=== PATIENT | female | born 1940 | race Caucasian/White ===

== ENCOUNTER 2016-10-25 16:02 | Inpatient (IN) | payer MEDICARE ==
--- NOTE | 2016-10-25 17:32 | ER Document Report ---
ED Medical Screen (RME) - General Stated Complaint: TOE PAIN Mode of Arrival: Wheelchair Information source: Patient Notes: Patient complains of diabetic foot ulcer to her foot. Patient saw her assistant office manager who advised her to come here today. Patient has been taking Levaquin for the past 5 days. hx: Diabetes, hypertension I have greeted and performed a rapid initial assessment of this patient. A comprehensive ED assessment and evaluation of the patient, analysis of test results and completion of the medical decision making process will be conducted by additional ED providers. Physical Exam - Skin Skin Color: Erythema - Right lower extremity Location of irregularity: Other - Ulcer to right great toe
[2016-10-25 18:51] LABS: ABSOLUTE EOSINOPHILS # (AUTO) 0.1 10^3/uL (0.0-0.6); ABSOLUTE LYMPHOCYTES (AUTO) 1.8 10^3/uL (0.5-4.7); ABSOLUTE MONOCYTES (AUTO) 0.9 10^3/uL (0.1-1.4); ABSOLUTE NEUT (AUTO) 8.1 10^3/uL (1.7-8.2); BASOPHILS % (AUTO) 0.4 % (0-2); HEMOGLOBIN 13.6 g/dL (12.0-15.5); HGB HCT DIFFERENCE 1.8; LYMPHOCYTES % (AUTO) 16.6 % (13-45); MEAN CORPUSCULAR HEMOGLOBIN 30.5 pg (27.0-33.4); MEAN CORPUSCULAR VOLUME 87 fl (80-97); RED BLOOD COUNT 4.47 10^6/uL (3.72-5.28); RED CELL DISTRIBUTION WIDTH 13.6 % (11.5-14.0)
[2016-10-25 18:58] LABS: ALANINE AMINOTRANSFERASE 25 U/L (9-52); ALBUMIN 3.3 g/dL (3.5-5.0); ALKALINE PHOSPHATASE 103 U/L (38-126); ANION GAP 12 (5-19); ASPARTATE AMINO TRANSFERASE 18 U/L (14-36); BILIRUBIN,TOTAL 0.6 mg/dL (0.2-1.3); BLOOD UREA NITROGEN 10 mg/dL (7-20); CARBON DIOXIDE 27 mmol/L (22-30); CHLORIDE 94 mmol/L (98-107); CREATININE RESULT 0.54 mg/dL (0.52-1.25); GLUCOSE 278 mg/dL (75-110); POTASSIUM 3.7 mmol/L (3.6-5.0); SODIUM 132.9 mmol/L (137-145); TOTAL PROTEIN 6.8 g/dL (6.3-8.2)
--- NOTE | 2016-10-25 19:07 | ER Document Report ---
ED Extremity Problem, Lower - General Chief Complaint: R big toe pain, R leg pain Stated Complaint: TOE PAIN Mode of Arrival: Wheelchair Notes: patient is a 76 year old female p/w right toe wound. patient is a type II diabetic with h/i or idabetic foot wounds. she states this current one has been there for at least one week and was evaluated by her PCP on tuesday of last week. she was started on levaquin and told to f/u with podiatry today. she was told to come to the ED today. she admits to chills but denies objective fevers. She states shes had pain and swelling that has gotten worse along the front of her left nicholson. PMH: DM , HTN, HLD, HI in 2006 PSH: hemorrhoids, pelvic floor SH: pack years unclear she states she used to smoke 3 packs a day but unsure for how long, social etoh and denies drug use PCP: Dr. Castillo TRAVEL OUTSIDE OF THE [place] IN LAST 30 DAYS: No - Related Data Allergies/Adverse Reactions: Sulfa (Sulfonamide Antibiotics) Allergy (Verified 10/25/16 17:34) Past Medical History - General Information source: Patient - Social History Smoking Status: Unknown if Ever Smoked Family History: Reviewed & Not Pertinent Patient has suicidal ideation: No Patient has homicidal ideation: No Renal/ Medical History: Denies: Hx Peritoneal Dialysis Review of Systems - Review of Systems Constitutional: See HPI EENT: No symptoms reported Cardiovascular: No symptoms reported Respiratory: No symptoms reported Gastrointestinal: No symptoms reported Genitourinary: No symptoms reported Female Genitourinary: No symptoms reported Musculoskeletal: See HPI Skin: See HPI Hematologic/Lymphatic: No symptoms reported Neurological/Psychological: No symptoms reported Physical Exam - Vital signs Vitals: Temp Pulse Resp BP Pulse Ox 98.0 F 81 16 119/57 L 97 10/25/16 17:26 10/25/16 17:26 10/25/16 17:26 10/25/16 17:26 10/25/16 17:26 Interpretation: Normal - General General appearance: Appears well, Alert In distress: None - Respiratory Respiratory status: No respiratory distress Chest status: Nontender Breath sounds: Normal Chest palpation: Normal - Cardiovascular Rhythm: Regular Heart sounds: Normal auscultation Murmur: No Pulses: Normal: Dorsalis pedis Normal capillary refill: Yes - Extremities Calf: Other - negative homans Ankle: Tender, Edema Foot: Tender, Edema, Other - Skin Skin Temperature: Hot Skin Moisture: Dry Skin Color: Erythema Skin Turgor: Edematous Skin irregularity: other - nontender, area of flaking skin and ulcer at the tip of the right big toe with invasion into deeper tissue Irregularity with: Swelling, Warmth Course - Re-evaluation Re-evalutation: 10/25/16 20:26 patient is a 76 year old diabetic female with evidence of cellulitis of the lower leg and potentially necrotic right big toe with tract into deep tissue. leg evaluated by general surgeon Dr. Kenny and d/w Dr. Beto Regalado for admission. Patient will be admitted for IV abx and surgical evaluation for debridement possible amputation. - Vital Signs Vital signs: Temp Pulse Resp BP Pulse Ox 98.0 F 81 16 119/57 L 97 10/25/16 17:26 10/25/16 17:26 10/25/16 17:26 10/25/16 17:26 10/25/16 17:26 - Laboratory Result Diagrams: 10/25/16 18:10 10/25/16 18:10 Laboratory results interpreted by me: 10/25/16 10/25/16 18:10 18:10 WBC 11.0 H Sodium 132.9 L Chloride 94 L Glucose 278 H Albumin 3.3 L - Diagnostic Test Radiology reviewed: Image reviewed, Reports reviewed - Consults Dr. Beto Regalado Reason for consultation: 10/25/16 20:29 hospital admission Consulted provider: will come to ER Dr. andrew kenny Reason for consultation: 10/25/16 20:30 surgical evaluation Consulted provider: will come to ER Discharge - Discharge Clinical Impression: Diabetic toe ulcer Cellulitis Qualifiers: Site of cellulitis: extremity Site of cellulitis of extremity: toe Laterality: right Qualified Code(s): L03.031 - Cellulitis of right toe Condition: Stable Disposition: ADMITTED INPATIENT Admitting Provider: Hospitalist - Dr. Beto Regalado Unit Admitted: Medical Floor
[2016-10-25] MEDS ORDERED: GLUCAGON,HUMAN RECOMB 1 MG INJ IM PRN (20:12)
[2016-10-25] MEDS ORDERED: DEXTROSE 40% GEL 15 GM TUBE PO PRN ×2 (20:12)
[2016-10-25] MEDS ORDERED: DEXTROSE 50%-WATER 25 GM/50 ML DISP.SYRIN IV PRN ×2 (20:12)
[2016-10-25] MEDS ORDERED: HYDRALAZINE HCL INJ/PF 20 MG/1 ML SDV IV PRN (20:14)
[2016-10-25] MEDS ORDERED: KETOROLAC TROMETHAMINE INJ/PF 30 MG/1 ML SDV IV PRN (20:14)
[2016-10-25] MEDS ORDERED: ACETAMINOPHEN 325 MG TABLET PO PRN (20:14)
[2016-10-25] MEDS ORDERED: VANCOMYCIN HCL 0 MG in DEXTROSE 5%-WATER 250 ML IV NR (20:15)
[2016-10-25] MEDS ORDERED: CLINDAMYCIN 600 MG/D5W RTU 50 ML IV ONE (20:26)
[2016-10-25] MEDS ORDERED: ONDANSETRON HCL INJ/PF 4 MG/2 ML SDV IV PRN (20:58)
[2016-10-25] MEDS ORDERED: NORMAL SALINE 1000 ML 1,000 ML IV ONE (21:01)
--- NOTE | 2016-10-25 21:21 | PDOC CONSULTATION ---
Consultation Consult Date: 10/25/16 Attending physician:: PHILLY GUEVARA Consult reason:: Diabetic right great toe ulcer History of Present Illness Admission Date/PCP: 10/25/16 21:02 PHILLY GODOY History of Present Illness: JAMI STACK is a 76 year old female who presents emergency department complaining of infection involving the right great toe. The patient has had right great toe infections intermittently for several years. 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 She's been managed by black puller most recently Dr. Alta Taylor. She was started by mouth antibiotics without clinical improvement. She is now seen in the emergency department complaining of worsening right great toe redness swelling and now redness involving her foot and lower leg. The patient is admitted today hospital service with surgery consulting. The patient has [facility] [place] in years past. She is status post left second toe amputation many years ago due to complications from diabetes. Social History Smoking Status: Unknown if Ever Smoked Family History Family History: Reviewed & Not Pertinent Parental Family History Reviewed: Yes Children Family History Reviewed: Yes Sibling(s) Family History Reviewed.: Yes Medication/Allergy Home Medications: Atenolol/Chlorthalidone [Atenolol-Chlorthalidone 100-25] 1 tab PO DAILY Lisinopril [Prinivil 10 mg Tablet] 10 mg PO DAILY 10/25/16 Lorazepam 1 mg PO TIDP PRN 10/25/16 Lovastatin [Altoprev] 40 mg PO QPM 10/25/16 Magnesium Oxide 400 mg PO DAILY 10/25/16 Potassium Chloride [K-Tab ER] 8 meq PO DAILY 10/25/16 Tramadol HCl [Ultram 50 mg Tablet] 50 mg PO TIDP PRN 10/25/16 Venlafaxine HCl ER [Effexor Xr 75 mg Cap.sr] 150 mg PO DAILY 10/25/16 Allergies/Adverse Reactions: Sulfa (Sulfonamide Antibiotics) Allergy (Verified 10/25/16 17:34) Physical Exam Vital Signs: Temp Pulse Resp BP Pulse Ox 98.0 F 81 16 119/57 L 97 10/25/16 17:26 10/25/16 17:26 10/25/16 17:26 10/25/16 17:26 10/25/16 17:26 General appearance: PRESENT: no acute distress Head exam: PRESENT: normocephalic Eye exam: PRESENT: EOMI Mouth exam: PRESENT: moist Neck exam: PRESENT: full ROM Respiratory exam: PRESENT: clear to auscultation elizabeth Pulses: PRESENT: normal carotid pulses, normal radial pulses, +2 pedal pulses bilateral, other - Ultrasound bilaterally. I cannot palpate posterior tibial pulses. Patient's feet are edematous right greater than left. There is erythema to the right forefoot. There is gross chronic deformity involving the metatarsal hyperflexion, with dorsiflexion of the phalanges Extremities exam: PRESENT: other - Right great toe swollen, near-complete loss of nail, chronic. There is an opening to the skin at the tip of the right great toe seropurulent discharge. No obvious bone exposed. There is mild streaking to the forefoot and lower leg +3 edema to the right leg. On the left great toe first mal perforans ulcer, dry. Results Impressions: Foot X-Ray 10/25/16 17:31 IMPRESSION: No acute bone or joint defect. No foreign body. Assessment & Plan - Diagnosis (1) Diabetic toe ulcer Is this a current diagnosis for this admission?: YesPlan: 1. Acute superimposed on chronic right great toe infection, serious, with associated soft tissue infection of the forefoot and lower leg in this uncontrolled diabetic. The right great toe was threatened and is putting the right foot and lower leg in jeopardy. I explained this in very clear terms to the patient. She needs to be admitted to the hospital started on intravenous antibiotics and kept nothing by mouth after midnight. 2. The radiographic x-ray showed no obvious osteomyelitis. Nonetheless given this patient's age, history of problems with the right great toe, and the current stations of soft tissue infection involving the lower leg and foot, I believe this patient will be headed for a right great toe amputation sooner rather than later. 3. We'll plan to keep patient nothing by mouth after midnight and reexamine in the morning. She may undergo right great toe amputation in a staged fashion this hospitalization. - Time Time Spent: 30 to 50 Minutes Critical Time spent with patient: 15-24 minutes Medications reviewed and adjusted accordingly: Yes Anticipated discharge: Home - Inpatient Certification Based on my medical assessment, after consideration of the patient's comorbidities, presenting symptoms, or acuity I expect that the services needed warrant INPATIENT care.: Yes I certify that my determination is in accordance with my understanding of Medicare's requirements for reasonable and necessary INPATIENT services [42 CFR 412.3e].: Yes Medical Necessity: Need For IV Fluids, Need for IV Antibiotics, Need for Surgery
[2016-10-25] MEDS ORDERED: HEPARIN SOD (PORCINE) 5,000 UNIT/ML 1 ML SYRINGE SUBCUT SCH (22:00)
[2016-10-25] MEDS ORDERED: VANCOMYCIN HCL INJ 1000 MG VIAL ONE (22:47)
[2016-10-25] MEDS: VANCOMYCIN HCL 1,000 MG in DEXTROSE 5%-WATER 250 ML IV SCH (22:54)
[2016-10-25] MEDS: HEPARIN SOD (PORCINE) 5,000 UNIT/ML 1 ML SYRINGE SUBCUT SCH (22:54)
[2016-10-26] MEDS ORDERED: DEXTROSE 40% GEL 15 GM TUBE PO PRN (00:08)
[2016-10-26] MEDS: HEPARIN SOD (PORCINE) 5,000 UNIT/ML 1 ML SYRINGE SUBCUT SCH ×3 (05:32→21:19)
[2016-10-26 07:36] LABS: ABSOLUTE EOSINOPHILS # (AUTO) 0.1 10^3/uL (0.0-0.6); ABSOLUTE LYMPHOCYTES (AUTO) 1.8 10^3/uL (0.5-4.7); ABSOLUTE MONOCYTES (AUTO) 0.7 10^3/uL (0.1-1.4); ABSOLUTE NEUT (AUTO) 5.7 10^3/uL (1.7-8.2); BASOPHILS % (AUTO) 0.6 % (0-2); EOSINOPHILS % (AUTO) 1.1 % (0-6); HEMATOCRIT 35.1 % (36.0-47.0); HEMOGLOBIN 12.4 g/dL (12.0-15.5); HGB HCT DIFFERENCE 2.1; LYMPHOCYTES % (AUTO) 21.7 % (13-45); MEAN CORPUSCULAR HEMOGLOBIN 30.7 pg (27.0-33.4); MEAN CORPUSCULAR HGB CONC 35.3 g/dL (32.0-36.0); MEAN CORPUSCULAR VOLUME 87 fl (80-97); MONOCYTES % (AUTO) 8.3 % (3-13); RED BLOOD COUNT 4.03 10^6/uL (3.72-5.28); RED CELL DISTRIBUTION WIDTH 13.6 % (11.5-14.0); SEGMENTED NEUTROPHILS % (AUTO) 68.3 % (42-78); WHITE BLOOD COUNT 8.4 10^3/uL (4.0-10.5)
[2016-10-26 08:00] LABS: ANION GAP 13 (5-19); BLOOD UREA NITROGEN 8 mg/dL (7-20); CALCIUM 9.8 mg/dL (8.4-10.2); CARBON DIOXIDE 26 mmol/L (22-30); CHLORIDE 96 mmol/L (98-107); CREATININE RESULT 0.46 mg/dL (0.52-1.25); GLUCOSE 255 mg/dL (75-110); POTASSIUM 3.5 mmol/L (3.6-5.0); SODIUM 134.7 mmol/L (137-145)
[2016-10-26] MEDS ORDERED: METFORMIN HCL 500 MG TABLET PO SCH (08:00)
--- NOTE | 2016-10-26 08:35 | PDOC H&P ---
History of Present Illness Admission Date/PCP: 10/25/16 20:58 PHILLY QUOCJESSICA Patient complains of: Right great toe pain History of Present Illness: JAMI STACK is a 76 year old female who presents emergency department complaining of infection involving the right great toe complicated by a history of uncontrolled diabetes and Tobacco Dependence. The patient has had right great toe infections intermittently for several years. 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 She's been managed by cell repairer most recently Dr. Alta Taylor. She was started on by mouth Levaquin without clinical improvement. She is now referred to the emergency room by podiatry seen in the emergency department complaining of worsening right great toe redness swelling and now redness involving her foot and lower leg. The patient is admitted today hospital service with surgery consulting. The patient has been [facility] at [facility] in [place] in years past. She is status post left second toe amputation many years ago due to complications from diabetes. Past Medical History Endocrine Medical History: Reports: Diabetes Mellitus Type 1 Psychiatric Medical History: Reports: Depression Social History Smoking Status: Current Some Day Smoker Cigarettes Packs Per Day: 0.5 Number of Years Smokin Frequency of Alcohol Use: Social Hx Recreational Drug Use: No Drugs: None Hx Prescription Drug Abuse: No - Advance Directive Resuscitation Status: Full Code Family History Family History: DM, Hypertension Parental Family History Reviewed: Yes Children Family History Reviewed: Yes Sibling(s) Family History Reviewed.: Yes Medication/Allergy Home Medications: Atenolol/Chlorthalidone [Atenolol-Chlorthalidone 100-25] 1 tab PO DAILY Lisinopril [Prinivil 10 mg Tablet] 10 mg PO DAILY 10/25/16 Lorazepam 1 mg PO TIDP PRN 10/25/16 Lovastatin [Altoprev] 40 mg PO QPM 10/25/16 Magnesium Oxide 400 mg PO DAILY 10/25/16 Potassium Chloride [K-Tab ER] 8 meq PO DAILY 10/25/16 Tramadol HCl [Ultram 50 mg Tablet] 50 mg PO TIDP PRN 10/25/16 Venlafaxine HCl ER [Effexor Xr 75 mg Cap.sr] 150 mg PO DAILY 10/25/16 Allergies/Adverse Reactions: Sulfa (Sulfonamide Antibiotics) Allergy (Verified 10/25/16 17:34) Review of Systems Constitutional: ABSENT: chills, fever(s), headache(s), weight gain, weight loss Eyes: ABSENT: visual disturbances Ears: ABSENT: hearing changes Cardiovascular: ABSENT: chest pain, dyspnea on exertion, edema, orthropnea, palpitations Respiratory: ABSENT: cough, hemoptysis Gastrointestinal: ABSENT: abdominal pain, constipation, diarrhea, hematemesis, hematochezia, nausea, vomiting Genitourinary: ABSENT: dysuria, hematuria Musculoskeletal: ABSENT: joint swelling Integumentary: ABSENT: rash, wounds Neurological: ABSENT: abnormal gait, abnormal speech, confusion, dizziness, focal weakness, syncope Psychiatric: ABSENT: anxiety, depression, homidical ideation, suicidal ideation Endocrine: ABSENT: cold intolerance, heat intolerance, polydipsia, polyuria Hematologic/Lymphatic: ABSENT: easy bleeding, easy bruising Physical Exam Vital Signs: Temp Pulse Resp BP Pulse Ox 98.3 F 77 16 135/57 H 97 10/26/16 07:28 10/26/16 07:28 10/26/16 07:28 10/26/16 07:28 10/26/16 07:28 Intake & Output 10/24/16 10/25/16 10/26/16 11:59 11:59 11:59 Output Total 400 Balance -400 Weight 77.2 kg General appearance: PRESENT: cooperative, mild distress, well-developed, well- nourished Head exam: PRESENT: atraumatic, normocephalic Eye exam: PRESENT: conjunctiva pink, EOMI, PERRLA. ABSENT: scleral icterus Ear exam: PRESENT: normal external ear exam Mouth exam: PRESENT: moist, tongue midline Neck exam: ABSENT: carotid bruit, JVD, lymphadenopathy, thyromegaly Respiratory exam: PRESENT: clear to auscultation elizabeth. ABSENT: rales, rhonchi, wheezes Cardiovascular exam: PRESENT: RRR. ABSENT: diastolic murmur, rubs, systolic murmur Pulses: PRESENT: normal dorsalis pedis pul Vascular exam: PRESENT: normal capillary refill GI/Abdominal exam: PRESENT: normal bowel sounds, soft. ABSENT: distended, guarding, mass, organolmegaly, rebound, tenderness Rectal exam: PRESENT: deferred Extremities exam: PRESENT: full ROM, tenderness - Right foot tenderness and erythema stemming from swelling and large ulcer to the distal great toe with purulent Malodorous exudate. ABSENT: calf tenderness, clubbing, pedal edema Neurological exam: PRESENT: alert, awake, oriented to person, oriented to place , oriented to time, oriented to situation, CN II-XII grossly intact. ABSENT: motor sensory deficit Psychiatric exam: PRESENT: appropriate affect, normal mood. ABSENT: homicidal ideation, suicidal ideation Skin exam: PRESENT: dry, intact, warm. ABSENT: cyanosis, rash Results Laboratory Results: 10/26/16 06:31 10/26/16 06:31 10/26/16 10/26/16 06:31 06:31 WBC 8.4 RBC 4.03 Hgb 12.4 Hct 35.1 L MCV 87 MCH 30.7 MCHC 35.3 RDW 13.6 Plt Count 308 Seg Neutrophils % 68.3 Lymphocytes % 21.7 Monocytes % 8.3 Eosinophils % 1.1 Basophils % 0.6 Absolute Neutrophils 5.7 Absolute Lymphocytes 1.8 Absolute Monocytes 0.7 Absolute Eosinophils 0.1 Absolute Basophils 0.0 Sodium 134.7 L Potassium 3.5 L Chloride 96 L Carbon Dioxide 26 Anion Gap 13 BUN 8 Creatinine 0.46 L Est GFR ( Amer) > 60 Est GFR (Non-Af Amer) > 60 Glucose 255 H Calcium 9.8 Impressions: Foot X-Ray 10/25/16 17:31 IMPRESSION: No acute bone or joint defect. No foreign body. Assessment & Plan - Diagnosis (1) Cellulitis of foot without toes, right Is this a current diagnosis for this admission?: YesPlan: Empiric antibiotics and surgical consult please see #2 (2) Diabetic toe ulcer Is this a current diagnosis for this admission?: YesPlan: Empiric antibiotics, symptomatic management correction of underlying and uncontrolled diabetes and surgical consultation with follow-up of CBC blood and wound culture (3) Diabetes 1.5, managed as type 1 Is this a current diagnosis for this admission?: YesPlan: Evaluation of A1c Humalog sliding scale insulin and long-acting insulin regiment with education (4) Tobacco dependence Is this a current diagnosis for this admission?: YesPlan: Tobacco Dependence patient received tobacco cessation counseling and offered nicotine replacement options - Time Time Spent: 50 to 70 Minutes
[2016-10-26] MEDS ORDERED: CHLORTHALIDONE PO SCH (10:00)
[2016-10-26] MEDS ORDERED: ATENOLOL PO SCH (10:00)
[2016-10-26] MEDS: VANCOMYCIN HCL 1,000 MG in DEXTROSE 5%-WATER 250 ML IV SCH ×2 (10:06→21:24)
[2016-10-26] MEDS ORDERED: LIDOCAINE 1% INJ-PF (10 MG/ML) 30 ML SDV ONE (10:14)
[2016-10-26] MEDS ORDERED: NORMAL SALINE 1000 ML 1,000 ML IV PRN (10:22)
[2016-10-26] MEDS ORDERED: FENTANYL CITRATE INJ/PF 100 MCG/2 ML AMPUL ONE (10:56)
[2016-10-26] MEDS ORDERED: DEXMEDETOMIDINE INJ 80 MCG/20 ML VIAL IV ONE (10:57)
[2016-10-26] MEDS ORDERED: PROPOFOL INJ 200 MG/20 ML VIAL IV ONE (10:57)
[2016-10-26] MEDS ORDERED: MIDAZOLAM 2 MG/2 ML INJ ONE (10:57)
--- NOTE | 2016-10-26 12:17 | Operative Report ---
Operative Report DATE OF SURGERY: 10/26/16 PREOPERATIVE DIAGNOSIS: Septic right great toe in diabetic POSTOPERATIVE DIAGNOSIS: Same OPERATION: Plan right great toe amputation including metatarsal head with planned delayed primary closure SURGEON: ORA LIVINGSTON DATASTAGE ARCHITECT: DAFNE MCDANIEL ANESTHESIA: LMAC TISSUE REMOVED OR ALTERED: Right great toe and first metatarsal head COMPLICATIONS: On ESTIMATED BLOOD LOSS: 25 mL INTRAOPERATIVE FINDINGS: See below PROCEDURE: Patient was seen in the preoperative holding area the right foot was marked. Then taken to the operating room where LMAC anesthesia was induced. The right foot was prepped and draped sterile fashion. Instrumentation set up for complete right great toe amputation. Surgical plan surgical time out conducted. The patella the web space was anesthetized with quarter percent Marcaine. There was amputated at the web space with 10 blade. The first phalanx was amputated with the remnant was removed with rongeur and periosteal elevators. The head of the first metatarsal bone was also removed with the Liu until smooth. All vessels were patent and cauterized for control. The skin flaps were in excellent shape. As of the active infection in the toe, I felt that primary closure would be risky so we decided to do a late primary closure. The graft after irrigating the wound copiously aced 6 interrupted 3-0 vertical mattress sutures in the anterior posterior skin flaps. We packed the wound cavity with iodoform packing, covered the open wound with Xeroform, balled up the loose untied sutures, applied 4 x 4's and Curlex and Jeff wrap to the forefoot. Jeff wrap was applied. Postop procedure well. No complications. She is taken recovery in stable condition.The physician medical assistant secretary, Ms. Mcdaniel, provided assistance during this case by: Assisting with retracting tissue, instillation of local anesthesia and closure of skin incisions.
[2016-10-26] MEDS ORDERED: ONDANSETRON HCL INJ/PF 4 MG/2 ML SDV IV PRN (12:18)
[2016-10-26] MEDS ORDERED: OXYCODONE-ACETAMINOPHEN 5-325 MG TABLET PO PRN ×2 (12:18→12:38)
--- NOTE | 2016-10-26 13:27 | EKG REPORT ---
SEVERITY:- ABNORMAL ECG - SINUS RHYTHM LEFT BUNDLE BRANCH BLOCK : Confirmed by: Davi Fritz MD 26-Oct-2016 13:26:56
[2016-10-26] MEDS: INSULIN LISPRO 100 UNIT/ML 3 ML VIAL SUBCUT PRN ×3 (13:39→22:15)
[2016-10-26] MEDS: LORAZEPAM 1 MG TABLET PO PRN (13:57)
[2016-10-26] MEDS: DOCUSATE SODIUM 100 MG CAPSULE PO SCH ×2 (13:57→18:02)
[2016-10-26] MEDS: MAGNESIUM OXIDE 400 MG TABLET PO SCH (13:58)
[2016-10-26] MEDS: LISINOPRIL 10 MG TABLET PO SCH (13:58)
[2016-10-26] MEDS: VENLAFAXINE HCL 75 MG CAP.SR.24H PO SCH (14:07)
[2016-10-26] MEDS ORDERED: LIDOCAINE 2% INJ-PF (20 MG/ML) 10 ML AMPUL ONE (15:14)
[2016-10-26] MEDS ORDERED: METOCLOPRAMIDE HCL INJ/PF 10 MG/2 ML SDV ONE (15:14)
[2016-10-26] MEDS ORDERED: ONDANSETRON HCL INJ/PF 4 MG/2 ML SDV ONE (15:14)
[2016-10-26] MEDS ORDERED: GLYCOPYRROLATE INJ 0.4 MG/2 ML VIAL ONE (15:14)
[2016-10-26] MEDS ORDERED: NICOTINE 21 MG/24 HR PATCH.TD24 TD PRN (15:47)
--- NOTE | 2016-10-26 15:49 | PDOC PROGRESS REPORT ---
Subjective Progress Note for:: 10/26/16 Subjective:: The patient was seen earlier today on rounds. The patient has returned from the OR and had amputation of the affected right great toe. The patient denies any nausea, vomiting, diarrhea, shortness of breath, dizziness, chest pain, heart palpitations, fevers, or chills. The patient has remained afebrile. Blood pressures have been in a good range. When prompted the patient voices no other concerns at this time. Review of systems: The rest of the review of systems is negative. Physical Exam Vital Signs: Temp Pulse Resp BP Pulse Ox 97.8 F 78 16 133/67 H 98 10/26/16 13:57 10/26/16 13:57 10/26/16 13:57 10/26/16 13:57 10/26/16 13:57 Intake & Output 10/24/16 10/25/16 10/26/16 23:59 23:59 23:59 Intake Total 700 Output Total 950 Balance -250 Weight 77.2 kg General appearance: PRESENT: no acute distress, cooperative, well-developed, well-nourished Head exam: PRESENT: atraumatic, normocephalic Eye exam: PRESENT: conjunctiva pink, EOMI, PERRLA. ABSENT: scleral icterus Ear exam: PRESENT: normal external ear exam Mouth exam: PRESENT: moist, tongue midline Neck exam: ABSENT: carotid bruit, JVD, lymphadenopathy, thyromegaly Respiratory exam: PRESENT: clear to auscultation elizabeth. ABSENT: rales, rhonchi, wheezes Cardiovascular exam: PRESENT: RRR. ABSENT: diastolic murmur, rubs, systolic murmur Pulses: PRESENT: normal dorsalis pedis pul Vascular exam: PRESENT: normal capillary refill GI/Abdominal exam: PRESENT: normal bowel sounds, soft. ABSENT: distended, guarding, mass, organolmegaly, rebound, tenderness Rectal exam: PRESENT: deferred Extremities exam: PRESENT: full ROM, other - Right lower extremity is wrapped in surgical dressing. ABSENT: calf tenderness, clubbing, pedal edema Neurological exam: PRESENT: alert, awake, oriented to person, oriented to place , oriented to time, oriented to situation, CN II-XII grossly intact. ABSENT: motor sensory deficit Psychiatric exam: PRESENT: appropriate affect, normal mood. ABSENT: homicidal ideation, suicidal ideation Skin exam: PRESENT: dry, intact, warm. ABSENT: cyanosis, rash Results Laboratory Results: 10/26/16 06:31 10/26/16 06:31 10/26/16 10/26/16 06:31 06:31 WBC 8.4 RBC 4.03 Hgb 12.4 Hct 35.1 L MCV 87 MCH 30.7 MCHC 35.3 RDW 13.6 Plt Count 308 Seg Neutrophils % 68.3 Lymphocytes % 21.7 Monocytes % 8.3 Eosinophils % 1.1 Basophils % 0.6 Absolute Neutrophils 5.7 Absolute Lymphocytes 1.8 Absolute Monocytes 0.7 Absolute Eosinophils 0.1 Absolute Basophils 0.0 Sodium 134.7 L Potassium 3.5 L Chloride 96 L Carbon Dioxide 26 Anion Gap 13 BUN 8 Creatinine 0.46 L Est GFR ( Amer) > 60 Est GFR (Non-Af Amer) > 60 Glucose 255 H Calcium 9.8 Impressions: Foot X-Ray 10/25/16 17:31 IMPRESSION: No acute bone or joint defect. No foreign body. Assessment & Plan - Diagnosis (1) Cellulitis Qualifiers: Site of cellulitis: extremity Site of cellulitis of extremity: toe Laterality: right Qualified Code(s): L03.031 - Cellulitis of right toe Is this a current diagnosis for this admission?: YesPlan: Will continue IV antibiotic coverage. Will await pathologies. Blood cultures are pending. (2) Diabetes 1.5, managed as type 1 Is this a current diagnosis for this admission?: YesPlan: Continues on scale coverage and resume metformin now the patient is taking by mouth. Will increase dosage given elevated A1c (3) Status post amputation Is this a current diagnosis for this admission?: YesPlan: Management as per surgery (4) Tobacco dependence Is this a current diagnosis for this admission?: YesPlan: Spent 3 minutes discussing smoking cessation education. The patient declines any pharmacological intervention at this time however will add a PRN nicotine patch. - Time Time Spent with patient: 35 or more minutes Medications reviewed and adjusted accordingly: Yes Anticipated discharge: Home Within: within 48 hours
[2016-10-26] MEDS ORDERED: ATENOLOL 50 MG TABLET PO ONE (16:30)
[2016-10-26] MEDS: METFORMIN HCL 500 MG TABLET PO SCH (17:07)
[2016-10-26] MEDS ORDERED: (PENDING PHARMACY ID) (Lovastatin [Altoprev] 40 MG) PO SCH (18:00)
[2016-10-26] MEDS: ERTAPENEM SODIUM 1 GM in NORMAL SALINE 50 ML IV SCH (18:02)
[2016-10-26] MEDS: ATORVASTATIN CALCIUM 10 MG TABLET PO SCH (21:24)
[2016-10-27] MEDS: HEPARIN SOD (PORCINE) 5,000 UNIT/ML 1 ML SYRINGE SUBCUT SCH ×3 (06:59→22:08)
[2016-10-27] MEDS: INSULIN LISPRO 100 UNIT/ML 3 ML VIAL SUBCUT PRN ×4 (06:59→22:08)
--- NOTE | 2016-10-27 08:25 | PDOC PROGRESS REPORT ---
Subjective Progress Note for:: 10/27/16 Subjective:: Patient seen on morning rounds. She is resting in bed eating breakfast. She denies any chest pain, shortness of breath, or dyspnea. She denies any nausea, vomiting or diarrhea. She denies any pain in her foot at the present time. Rest of review of systems are all negative. Physical Exam Vital Signs: Temp Pulse Resp BP Pulse Ox 97.5 F 72 16 107/53 L 96 10/27/16 03:36 10/27/16 03:36 10/27/16 03:36 10/27/16 03:36 10/27/16 03:36 Intake & Output 10/26/16 10/27/16 10/28/16 06:59 06:59 06:59 Intake Total 2810 Output Total 400 1853.5 Balance -400 956.5 Weight 77.2 kg 77.2 kg General appearance: PRESENT: no acute distress, well-developed, well-nourished Head exam: PRESENT: atraumatic, normocephalic Eye exam: PRESENT: conjunctiva pink, EOMI, PERRLA. ABSENT: scleral icterus Ear exam: PRESENT: normal external ear exam Mouth exam: PRESENT: moist, tongue midline Neck exam: ABSENT: carotid bruit, JVD, lymphadenopathy, thyromegaly Respiratory exam: PRESENT: clear to auscultation elizabeth. ABSENT: rales, rhonchi, wheezes Cardiovascular exam: PRESENT: RRR. ABSENT: diastolic murmur, rubs, systolic murmur Pulses: PRESENT: normal dorsalis pedis pul Vascular exam: PRESENT: normal capillary refill GI/Abdominal exam: PRESENT: normal bowel sounds, soft. ABSENT: distended, guarding, mass, organolmegaly, rebound, tenderness Extremities exam: PRESENT: full ROM, other - right foot wrapped in pam wrap and surgical dressing.. ABSENT: calf tenderness, clubbing, pedal edema Neurological exam: PRESENT: alert, awake, oriented to person, oriented to place , oriented to time, oriented to situation, CN II-XII grossly intact. ABSENT: motor sensory deficit Psychiatric exam: PRESENT: appropriate affect, normal mood. ABSENT: homicidal ideation, suicidal ideation Skin exam: PRESENT: dry, intact, warm, other. ABSENT: cyanosis, rash Results Laboratory Results: 10/26/16 06:31 10/26/16 06:31 Impressions: Foot X-Ray 10/25/16 17:31 IMPRESSION: No acute bone or joint defect. No foreign body. Assessment & Plan - Diagnosis (1) Status post amputation Is this a current diagnosis for this admission?: YesPlan: Surgical dressing to right foot dry and intact. Patient reports minimal pain. (2) Cellulitis Qualifiers: Site of cellulitis: extremity Site of cellulitis of extremity: toe Laterality: right Qualified Code(s): L03.031 - Cellulitis of right toe Is this a current diagnosis for this admission?: YesPlan: Continue IV antiobiotics, cultures negative (3) Diabetes 1.5, managed as type 1 Is this a current diagnosis for this admission?: YesPlan: Continue current meds and sliding scale coverage (4) Tobacco dependence Is this a current diagnosis for this admission?: YesPlan: Patient counseled - Time Time Spent with patient: 25-34 minutes Critical Time spent with patient: 15-24 minutes Anticipated discharge: Home
[2016-10-27] MEDS: METFORMIN HCL 500 MG TABLET PO SCH ×2 (09:01→17:55)
[2016-10-27] MEDS: DOCUSATE SODIUM 100 MG CAPSULE PO SCH ×2 (10:47→18:00)
[2016-10-27] MEDS: LORAZEPAM 1 MG TABLET PO PRN ×2 (10:47→22:09)
[2016-10-27] MEDS: MAGNESIUM OXIDE 400 MG TABLET PO SCH (10:47)
[2016-10-27] MEDS: ATENOLOL 50 MG TABLET PO SCH (10:48)
[2016-10-27] MEDS: LISINOPRIL 10 MG TABLET PO SCH (10:50)
[2016-10-27] MEDS: HYDROCHLOROTHIAZIDE 12.5 MG CAPSULE PO SCH (10:50)
[2016-10-27] MEDS: OXYCODONE-ACETAMINOPHEN 5-325 MG TABLET PO PRN ×2 (10:53→23:09)
[2016-10-27] MEDS: VANCOMYCIN HCL 1,000 MG in DEXTROSE 5%-WATER 250 ML IV SCH (10:58)
[2016-10-27 11:33] LABS: CREATININE RESULT 0.54 mg/dL (0.52-1.25)
--- NOTE | 2016-10-27 12:39 | PDOC PROGRESS REPORT ---
Subjective Progress Note for:: 10/27/16 Subjective:: Overall doing well with slight pain that started today noted around incisions site. Redness on leg has decreased. Wondering when she can be discharged. Results for culture discussed- no growth on cultures. Physical Exam Vital Signs: Temp Pulse Resp BP Pulse Ox 98.0 F 81 18 120/54 L 96 10/27/16 08:26 10/27/16 08:26 10/27/16 08:26 10/27/16 08:26 10/27/16 08:26 Intake & Output 10/26/16 10/27/16 10/28/16 06:59 06:59 06:59 Intake Total 3410 Output Total 400 2853.5 Balance -400 556.5 Weight 77.2 kg 77.2 kg General appearance: PRESENT: no acute distress, cooperative Musculoskeletal exam: PRESENT: other - Right great toe amputation with non- saturated dressings intact. Slight tenderness noted medial lower leg. Anterior/ medial erythema superior to dressing has decreased. No streaking. Minimal erythema around ankle. Results Laboratory Results: 10/26/16 06:31 10/27/16 09:57 10/27/16 09:57 Creatinine 0.54 Est GFR ( Amer) > 60 Est GFR (Non-Af Amer) > 60 Impressions: Foot X-Ray 10/25/16 17:31 IMPRESSION: No acute bone or joint defect. No foreign body. Assessment & Plan - Diagnosis (1) Status post amputation Is this a current diagnosis for this admission?: YesPlan: Continue IV medications. Will close amputation site tomorrow and apply new dressings. - Time Time Spent with patient: Less than 15 minutes Anticipated discharge: Home
[2016-10-27] MEDS: VENLAFAXINE HCL 75 MG CAP.SR.24H PO SCH (15:37)
[2016-10-27] MEDS: ERTAPENEM SODIUM 1 GM in NORMAL SALINE 50 ML IV SCH (18:00)
[2016-10-27] MEDS: ATORVASTATIN CALCIUM 10 MG TABLET PO SCH (22:21)
[2016-10-28] MEDS: HEPARIN SOD (PORCINE) 5,000 UNIT/ML 1 ML SYRINGE SUBCUT SCH ×3 (05:38→22:22)
[2016-10-28] MEDS: INSULIN LISPRO 100 UNIT/ML 3 ML VIAL SUBCUT PRN ×4 (06:51→22:22)
[2016-10-28 07:47] LABS: ABSOLUTE EOSINOPHILS # (AUTO) 0.1 10^3/uL (0.0-0.6); ABSOLUTE LYMPHOCYTES (AUTO) 2.2 10^3/uL (0.5-4.7); ABSOLUTE MONOCYTES (AUTO) 0.7 10^3/uL (0.1-1.4); ABSOLUTE NEUT (AUTO) 5.1 10^3/uL (1.7-8.2); BASOPHILS % (AUTO) 0.5 % (0-2); EOSINOPHILS % (AUTO) 1.3 % (0-6); HEMATOCRIT 34.5 % (36.0-47.0); HEMOGLOBIN 12.1 g/dL (12.0-15.5); HGB HCT DIFFERENCE 1.8; LYMPHOCYTES % (AUTO) 26.8 % (13-45); MEAN CORPUSCULAR HEMOGLOBIN 30.5 pg (27.0-33.4); MEAN CORPUSCULAR VOLUME 87 fl (80-97); MONOCYTES % (AUTO) 8.1 % (3-13); RED BLOOD COUNT 3.96 10^6/uL (3.72-5.28); RED CELL DISTRIBUTION WIDTH 13.3 % (11.5-14.0); SEGMENTED NEUTROPHILS % (AUTO) 63.3 % (42-78); WHITE BLOOD COUNT 8.1 10^3/uL (4.0-10.5)
[2016-10-28] MEDS: HYDROCHLOROTHIAZIDE 12.5 MG CAPSULE PO SCH (09:40)
[2016-10-28] MEDS: LISINOPRIL 10 MG TABLET PO SCH (09:40)
[2016-10-28] MEDS: MAGNESIUM OXIDE 400 MG TABLET PO SCH (09:41)
[2016-10-28] MEDS: ATENOLOL 50 MG TABLET PO SCH (09:41)
[2016-10-28] MEDS: DOCUSATE SODIUM 100 MG CAPSULE PO SCH ×2 (09:41→17:18)
[2016-10-28] MEDS: METFORMIN HCL 500 MG TABLET PO SCH ×3 (09:42→17:18)
[2016-10-28] MEDS: VENLAFAXINE HCL 75 MG CAP.SR.24H PO SCH (09:57)
[2016-10-28] MEDS ORDERED: ONDANSETRON 4 MG TAB.RAPDIS PO PRN (09:57)
--- NOTE | 2016-10-28 10:23 | PDOC PROGRESS REPORT ---
Subjective Progress Note for:: 10/28/16 Subjective:: The patient was seen earlier today on rounds. The patient is to return to the OR today to have a mutation closed. The patient does complain of right upper extremity pain which she has had for the last month. The patient denies any nausea, vomiting, diarrhea, shortness of breath, dizziness, chest pain, heart palpitations, fevers, or chills. The patient has remained afebrile. Blood pressures have been in a good range. When prompted the patient voices no other concerns at this time. Sugars still remain elevated. Review of systems: The rest of the review of systems is negative. Physical Exam Vital Signs: Temp Pulse Resp BP Pulse Ox 97.8 F 74 18 119/57 L 94 10/28/16 08:03 10/28/16 08:03 10/28/16 08:03 10/28/16 08:03 10/28/16 08:03 Intake & Output 10/26/16 10/27/16 10/28/16 23:59 23:59 23:59 Intake Total 2810 1830 240 Output Total 2253.5 2200 1000 Balance 556.5 -370 -760 Weight 77.2 kg 77.2 kg 78.3 kg General appearance: PRESENT: no acute distress, cooperative, well-developed, well-nourished Head exam: PRESENT: atraumatic, normocephalic Eye exam: PRESENT: conjunctiva pink, EOMI, PERRLA. ABSENT: scleral icterus Ear exam: PRESENT: normal external ear exam Mouth exam: PRESENT: moist, tongue midline Neck exam: ABSENT: carotid bruit, JVD, lymphadenopathy, thyromegaly Respiratory exam: PRESENT: clear to auscultation elizabeth. ABSENT: rales, rhonchi, wheezes Cardiovascular exam: PRESENT: RRR. ABSENT: diastolic murmur, rubs, systolic murmur Pulses: PRESENT: normal dorsalis pedis pul Vascular exam: PRESENT: normal capillary refill GI/Abdominal exam: PRESENT: normal bowel sounds, soft. ABSENT: distended, guarding, mass, organolmegaly, rebound, tenderness Rectal exam: PRESENT: deferred Extremities exam: PRESENT: full ROM, other - Right lower extremity is wrapped in surgical dressing. ABSENT: calf tenderness, clubbing, pedal edema Neurological exam: PRESENT: alert, awake, oriented to person, oriented to place , oriented to time, oriented to situation, CN II-XII grossly intact. ABSENT: motor sensory deficit Psychiatric exam: PRESENT: appropriate affect, normal mood. ABSENT: homicidal ideation, suicidal ideation Skin exam: PRESENT: dry, intact, warm. ABSENT: cyanosis, rash Results Laboratory Results: 10/28/16 06:50 10/27/16 09:57 10/27/16 10/28/16 09:57 06:50 WBC 8.1 RBC 3.96 Hgb 12.1 Hct 34.5 L MCV 87 MCH 30.5 MCHC 35.0 RDW 13.3 Plt Count 311 Seg Neutrophils % 63.3 Lymphocytes % 26.8 Monocytes % 8.1 Eosinophils % 1.3 Basophils % 0.5 Absolute Neutrophils 5.1 Absolute Lymphocytes 2.2 Absolute Monocytes 0.7 Absolute Eosinophils 0.1 Absolute Basophils 0.0 Creatinine 0.54 Est GFR ( Amer) > 60 Est GFR (Non-Af Amer) > 60 Impressions: Foot X-Ray 10/25/16 17:31 IMPRESSION: No acute bone or joint defect. No foreign body. Assessment & Plan - Diagnosis (1) Cellulitis Qualifiers: Site of cellulitis: extremity Site of cellulitis of extremity: toe Laterality: right Qualified Code(s): L03.031 - Cellulitis of right toe Is this a current diagnosis for this admission?: NoPlan: Will continue IV antibiotic coverage. Will await pathologies. Blood cultures are pending. (2) Status post amputation Is this a current diagnosis for this admission?: YesPlan: The patient is returned to the OR today. (3) Diabetes mellitus type 2 in nonobese Is this a current diagnosis for this admission?: YesPlan: Will increase metformin and continue sliding scale coverage. She was on nothing at home. (4) Tobacco dependence Is this a current diagnosis for this admission?: YesPlan: PRN nicotine patch. - Time Time Spent with patient: 25-34 minutes Medications reviewed and adjusted accordingly: Yes Anticipated discharge: Home Within: within 24 hours
--- NOTE | 2016-10-28 11:55 | PDOC PROGRESS REPORT ---
Subjective Progress Note for:: 10/28/16 Subjective:: Doing well. Minimal pain. Physical Exam Vital Signs: Temp Pulse Resp BP Pulse Ox 97.8 F 74 18 119/57 L 94 10/28/16 08:03 10/28/16 08:03 10/28/16 08:03 10/28/16 08:03 10/28/16 08:03 Intake & Output 10/27/16 10/28/16 10/29/16 06:59 06:59 06:59 Intake Total 3410 1470 Output Total 2853.5 2200 Balance 556.5 -730 Weight 77.2 kg 78.3 kg General appearance: PRESENT: no acute distress Extremities exam: PRESENT: other - No erythema/cellulitis noted on right lower leg. Musculoskeletal exam: PRESENT: other - Right great toe amputation with sutures and packing intact. No drainage/cellulitis noted. Neurological exam: PRESENT: alert Results Laboratory Results: 10/28/16 06:50 10/27/16 09:57 10/28/16 06:50 WBC 8.1 RBC 3.96 Hgb 12.1 Hct 34.5 L MCV 87 MCH 30.5 MCHC 35.0 RDW 13.3 Plt Count 311 Seg Neutrophils % 63.3 Lymphocytes % 26.8 Monocytes % 8.1 Eosinophils % 1.3 Basophils % 0.5 Absolute Neutrophils 5.1 Absolute Lymphocytes 2.2 Absolute Monocytes 0.7 Absolute Eosinophils 0.1 Absolute Basophils 0.0 Impressions: Foot X-Ray 10/25/16 17:31 IMPRESSION: No acute bone or joint defect. No foreign body. Assessment & Plan - Diagnosis (1) Status post amputation Is this a current diagnosis for this admission?: YesPlan: Dressing removed, wound irrigated with normal saline. Packing removed. Wound edges approximated by tying down suture placed during surgery. Irrigated again, covered with xerofrom, 4x4 and dressings applied. 1) Daily dressing changes to include cleaning with normal saline, xerofrom, 4x4 and pam wrap. 2) Continue IV medication. - Time Time Spent with patient: 15-24 minutes
[2016-10-28] MEDS: ERTAPENEM SODIUM 1 GM in NORMAL SALINE 50 ML IV SCH (18:23)
[2016-10-28] MEDS: OXYCODONE-ACETAMINOPHEN 5-325 MG TABLET PO PRN (20:05)
[2016-10-28] MEDS: ATORVASTATIN CALCIUM 10 MG TABLET PO SCH (22:22)
[2016-10-28] MEDS: LORAZEPAM 1 MG TABLET PO PRN (22:30)
[2016-10-29] MEDS: HEPARIN SOD (PORCINE) 5,000 UNIT/ML 1 ML SYRINGE SUBCUT SCH ×2 (06:02→14:52)
[2016-10-29] MEDS: OXYCODONE-ACETAMINOPHEN 5-325 MG TABLET PO PRN (06:02)
[2016-10-29] MEDS: INSULIN LISPRO 100 UNIT/ML 3 ML VIAL SUBCUT PRN ×2 (08:01→12:02)
--- NOTE | 2016-10-29 08:54 | PDOC PROGRESS REPORT ---
Subjective Progress Note for:: 10/29/16 Physical Exam Vital Signs: Temp Pulse Resp BP Pulse Ox 98.0 F 78 14 117/62 97 10/29/16 08:20 10/29/16 08:20 10/29/16 08:20 10/29/16 08:20 10/29/16 08:20 Intake & Output 10/28/16 10/29/16 10/30/16 06:59 06:59 06:59 Intake Total 1470 Output Total 2200 Balance -730 Weight 78.3 kg 78 kg Extremities exam: PRESENT: calf tenderness, clubbing, full ROM, joint swelling, pedal edema, tenderness, +1 edema, +2 edema, other - Right foot - wound -clean , no edema Results Laboratory Results: 10/28/16 06:50 10/27/16 09:57 Impressions: Foot X-Ray 10/25/16 17:31 IMPRESSION: No acute bone or joint defect. No foreign body. Assessment & Plan - Plan Summary Plan Summary: s/p toe amputation, wound clean May DC home from surgical point with oral antibiotics Wet to dry dressings daily follow up in surgery clinic 10 days.
[2016-10-29] MEDS: HYDROCHLOROTHIAZIDE 12.5 MG CAPSULE PO SCH (09:56)
[2016-10-29] MEDS: ATENOLOL 50 MG TABLET PO SCH (09:57)
[2016-10-29] MEDS: DOCUSATE SODIUM 100 MG CAPSULE PO SCH (09:57)
[2016-10-29] MEDS: LISINOPRIL 10 MG TABLET PO SCH (09:57)
[2016-10-29] MEDS: MAGNESIUM OXIDE 400 MG TABLET PO SCH (09:57)
[2016-10-29] MEDS: METFORMIN HCL 500 MG TABLET PO SCH ×2 (09:57→14:53)
[2016-10-29] MEDS: VENLAFAXINE HCL 75 MG CAP.SR.24H PO SCH (09:58)
[2016-10-29 14:52] VITALS: BP 126/64
--- NOTE | 2016-10-29 17:08 | PDOC DISCHARGE SUMMARY ---
General - Admit/Disc Date/PCP Admission Date/Primary Care Provider: 10/25/16 20:58 PHILLY GODOY Discharge Date: 10/29/16 - Discharge Diagnosis (1) Cellulitis Is this a current diagnosis for this admission?: Yes (2) Status post amputation Is this a current diagnosis for this admission?: Yes (3) Diabetes mellitus type 2 in nonobese Is this a current diagnosis for this admission?: Yes (4) Tobacco dependence Is this a current diagnosis for this admission?: Yes - Additional Information Resuscitation Status: Full Code Discharge Diet: Diabetic Discharge Activity: Activity As Tolerated Home Medications: Atenolol/Chlorthalidone [Atenolol-Chlorthalidone 100-25] 1 tab PO DAILY Lisinopril [Prinivil 10 mg Tablet] 10 mg PO DAILY 10/25/16 Lorazepam 1 mg PO TIDP PRN 10/25/16 Lovastatin [Altoprev] 40 mg PO QPM 10/25/16 Magnesium Oxide 400 mg PO DAILY 10/25/16 Potassium Chloride [K-Tab ER] 8 meq PO DAILY 10/25/16 Tramadol HCl [Ultram 50 mg Tablet] 50 mg PO TIDP PRN 10/25/16 Venlafaxine HCl ER [Effexor Xr 75 mg Cap.sr] 150 mg PO DAILY 10/25/16 Insulin Glargine,Hum.rec.anlog [Lantus Insulin 100 Unit/1 ml 10 ml] 50 unit SUBCUT QHS #1 unit 10/29/16 Levofloxacin [Levaquin 500 mg Tablet] 500 mg PO DAILY #10 tablet 10/29/16 Metformin HCl [Glucophage] 500 mg PO BID #60 tablet 10/29/16 History of Present Illness Patient complains of: Right great toe pain History of Present Illness: JAMI STACK is a 76 year old female who presents emergency department complaining of infection involving the right great toe complicated by a history of uncontrolled diabetes and Tobacco Dependence. The patient has had right great toe infections intermittently for several years. 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 She's been managed by database administrator most recently Dr. Alta Taylor. She was started on by mouth Levaquin without clinical improvement. She is now referred to the emergency room by podiatry seen in the emergency department complaining of worsening right great toe redness swelling and now redness involving her foot and lower leg. The patient is admitted today hospital service with surgery consulting. The [facility] [place] in years past. She is status post left second toe amputation many years ago due to complications from diabetes. Hospital Course Hospital Course: The patient was admitted to continuous telemetry unit. Blood cultures were obtained. Patient was started on broad-spectrum IV antibiotic coverage. Blood cultures revealed no growth. The patient had drastic improvement of symptoms after amputation of the infected toe. The patient's blood sugars were controlled with metformin as well as sliding scale coverage. The patient was candid in her lack of compliance with her insulin regimen at home. No further fever, white count has improved, and clinical assessment has improved. The patient has been cleared for discharge from a surgical standpoint. Patient is ready for discharge. Physical Exam Vital Signs: Temp Pulse Resp BP Pulse Ox 97.6 F 66 12 126/64 H 98 10/29/16 14:50 10/29/16 14:50 10/29/16 14:50 10/29/16 14:50 10/29/16 14:50 Intake & Output 10/27/16 10/28/16 10/29/16 23:59 23:59 23:59 Intake Total 1830 240 Output Total 2200 1000 Balance -370 -760 Weight 77.2 kg 78.3 kg 78 kg General appearance: PRESENT: no acute distress, cooperative, well-developed, well-nourished Head exam: PRESENT: atraumatic, normocephalic Eye exam: PRESENT: conjunctiva pink, EOMI, PERRLA. ABSENT: scleral icterus Ear exam: PRESENT: normal external ear exam Mouth exam: PRESENT: moist, tongue midline Neck exam: ABSENT: carotid bruit, JVD, lymphadenopathy, thyromegaly Respiratory exam: PRESENT: clear to auscultation elizabeth. ABSENT: rales, rhonchi, wheezes Cardiovascular exam: PRESENT: RRR. ABSENT: diastolic murmur, rubs, systolic murmur Pulses: PRESENT: normal dorsalis pedis pul Vascular exam: PRESENT: normal capillary refill GI/Abdominal exam: PRESENT: normal bowel sounds, soft. ABSENT: distended, guarding, mass, organolmegaly, rebound, tenderness Rectal exam: PRESENT: deferred Extremities exam: PRESENT: full ROM, other - Right lower extremity is wrapped in surgical dressing. ABSENT: calf tenderness, clubbing, pedal edema Neurological exam: PRESENT: alert, awake, oriented to person, oriented to place , oriented to time, oriented to situation, CN II-XII grossly intact. ABSENT: motor sensory deficit Psychiatric exam: PRESENT: appropriate affect, normal mood. ABSENT: homicidal ideation, suicidal ideation Skin exam: PRESENT: dry, intact, warm. ABSENT: cyanosis, rash Results Laboratory Results: Labs- Last Values WBC 8.1 10^3/uL (4.0-10.5) 10/28/16 06:50 RBC 3.96 10^6/uL (3.72-5.28) 10/28/16 06:50 Hgb 12.1 g/dL (12.0-15.5) 10/28/16 06:50 Hct 34.5 % (36.0-47.0) L 10/28/16 06:50 MCV 87 fl (80-97) 10/28/16 06:50 MCH 30.5 pg (27.0-33.4) 10/28/16 06:50 MCHC 35.0 g/dL (32.0-36.0) 10/28/16 06:50 RDW 13.3 % (11.5-14.0) 10/28/16 06:50 Plt Count 311 10^3/uL (150-450) 10/28/16 06:50 Seg Neutrophils % 63.3 % (42-78) 10/28/16 06:50 Lymphocytes % 26.8 % (13-45) 10/28/16 06:50 Monocytes % 8.1 % (3-13) 10/28/16 06:50 Eosinophils % 1.3 % (0-6) 10/28/16 06:50 Basophils % 0.5 % (0-2) 10/28/16 06:50 Absolute Neutrophils 5.1 10^3/uL (1.7-8.2) 10/28/16 06:50 Absolute Lymphocytes 2.2 10^3/uL (0.5-4.7) 10/28/16 06:50 Absolute Monocytes 0.7 10^3/uL (0.1-1.4) 10/28/16 06:50 Absolute Eosinophils 0.1 10^3/uL (0.0-0.6) 10/28/16 06:50 Absolute Basophils 0.0 10^3/uL (0.0-0.2) 10/28/16 06:50 Sodium 134.7 mmol/L (137-145) L 10/26/16 06:31 Potassium 3.5 mmol/L (3.6-5.0) L 10/26/16 06:31 Chloride 96 mmol/L (98-107) L 10/26/16 06:31 Carbon Dioxide 26 mmol/L (22-30) 10/26/16 06:31 Anion Gap 13 (5-19) 10/26/16 06:31 BUN 8 mg/dL (7-20) 10/26/16 06:31 Creatinine 0.54 mg/dL (0.52-1.25) 10/27/16 09:57 Est GFR ( Amer) > 60 (>60) 10/27/16 09:57 Est GFR (Non-Af Amer) > 60 (>60) 10/27/16 09:57 Glucose 255 mg/dL (75-110) H 10/26/16 06:31 POC Glucose 234 mg/dL (70-110) H 10/29/16 11:37 Hemoglobin A1c % 9.4 % (4.7-6.0) H 10/25/16 18:10 Calcium 9.8 mg/dL (8.4-10.2) 10/26/16 06:31 Total Bilirubin 0.6 mg/dL (0.2-1.3) 10/25/16 18:10 Direct Bilirubin 0.0 mg/dL (0.0-0.3) 10/25/16 18:10 AST 18 U/L (14-36) 10/25/16 18:10 ALT 25 U/L (9-52) 10/25/16 18:10 Alkaline Phosphatase 103 U/L (38-126) 10/25/16 18:10 Total Protein 6.8 g/dL (6.3-8.2) 10/25/16 18:10 Albumin 3.3 g/dL (3.5-5.0) L 10/25/16 18:10 Time Trough Drawn 0957 10/27/16 09:57 Vancomycin Trough 6.6 ug/mL (5.0-20.0) 10/27/16 09:57 10/25/16 19:15 Blood Culture - Preliminary Blood NO GROWTH AFTER 72 HOURS 10/25/16 18:55 Gram Stain - Final Toe - Right First Wound Culture - Final NO GROWTH 3 DAYS 10/25/16 18:10 Blood Culture - Preliminary Blood NO GROWTH AFTER 72 HOURS Impressions: Foot X-Ray 10/25/16 17:31 IMPRESSION: No acute bone or joint defect. No foreign body. Qualifiers PATEINT BEING DISCHARGED WITH ANY OF THE FOLLOWING DIAGNOSIS?: No Plan Discharge Plan: The patient is to follow-up with the surgicalist as scheduled for hospital follow-up. The patient is a follow with primary care provider within one week for hospital follow-up. Time Spent: Less than 30 Minutes
== END 2016-10-29 15:50 | disposition home or self-care (01) | DRG 617 ==
LOC: ER 16:02 → EH 20:58 → UNDOADMIN 21:02 → 2N 10-26 02:48
PROVIDERS: ADMIT Internal Medicine; ATTEND Internal Medicine
PROC: 0Y6P0Z0 Detachment at Right 1st Toe, Complete, Open Approach (ICD-10-PCS; principal; 2016-10-26 10:30)
DX: E10.621 Type 1 diabetes mellitus with foot ulcer (principal); L03.115 Cellulitis of right lower limb; L97.519 Non-pressure chronic ulcer of other part of right foot with unspecified severity; E10.65 Type 1 diabetes mellitus with hyperglycemia; F17.210 Nicotine dependence, cigarettes, uncomplicated; F32.9 Major depressive disorder, single episode, unspecified; Z82.49 Family history of ischemic heart disease and other diseases of the circulatory system; Z89.422 Acquired absence of other left toe(s); Z79.899 Other long term (current) drug therapy; Z88.2 Allergy status to sulfonamides; Z83.3 Family history of diabetes mellitus; Z79.4 Long term (current) use of insulin
CPT/HCPCS: 01480; 36415; 80048; 80053; 80202; 82565; 82962; 83036; 85025; 87040; 87070; 87205; 88305; 88311; 93005; 93010; 99285; J1335; J1644; J1815; J2250; J2405; J2704; J2765; J3010; J3370; J3490; J7030; J7060

== ENCOUNTER → 2016-12-01 | Outpatient (CLI) | payer MEDICARE ==
[2016-12-01 17:17] LABS: ABSOLUTE BASOPHILS # (AUTO) 0.1 10^3/uL (0.0-0.2); ABSOLUTE EOSINOPHILS # (AUTO) 0.1 10^3/uL (0.0-0.6); ABSOLUTE LYMPHOCYTES (AUTO) 3.2 10^3/uL (0.5-4.7); ABSOLUTE MONOCYTES (AUTO) 0.6 10^3/uL (0.1-1.4); ABSOLUTE NEUT (AUTO) 3.6 10^3/uL (1.7-8.2); BASOPHILS % (AUTO) 0.7 % (0-2); EOSINOPHILS % (AUTO) 1.6 % (0-6); HEMATOCRIT 40.5 % (36.0-47.0); HEMOGLOBIN 13.8 g/dL (12.0-15.5); HGB HCT DIFFERENCE 0.9; LYMPHOCYTES % (AUTO) 42.4 % (13-45); MEAN CORPUSCULAR HEMOGLOBIN 30.3 pg (27.0-33.4); MEAN CORPUSCULAR VOLUME 89 fl (80-97); MONOCYTES % (AUTO) 7.5 % (3-13); RED BLOOD COUNT 4.54 10^6/uL (3.72-5.28); SEGMENTED NEUTROPHILS % (AUTO) 47.8 % (42-78); WHITE BLOOD COUNT 7.5 10^3/uL (4.0-10.5)
[2016-12-01 17:39] LABS: ALANINE AMINOTRANSFERASE 25 U/L (9-52); ALBUMIN 3.9 g/dL (3.5-5.0); ALKALINE PHOSPHATASE 85 U/L (38-126); ANION GAP 9 (5-19); ASPARTATE AMINO TRANSFERASE 19 U/L (14-36); BILIRUBIN,TOTAL 0.6 mg/dL (0.2-1.3); BLOOD UREA NITROGEN 12 mg/dL (7-20); CALCIUM 10.7 mg/dL (8.4-10.2); CARBON DIOXIDE 31 mmol/L (22-30); CHLORIDE 99 mmol/L (98-107); CREATININE RESULT 0.57 mg/dL (0.52-1.25); GLUCOSE 177 mg/dL (75-110); POTASSIUM 4.1 mmol/L (3.6-5.0); SODIUM 139.4 mmol/L (137-145); TOTAL PROTEIN 6.8 g/dL (6.3-8.2)
[2016-12-01 17:44] LABS: C-REACTIVE PROTEIN < 5.0 mg/L (<10.0)
[2016-12-01 17:58] LABS: ERYTHROCYTE SEDIMENTATION RATE 22 mm/hr (0-30)
== END ==
LOC: OD 16:01
PROVIDERS: ATTEND Nurse Practitioner Family
DX: E11.621 Type 2 diabetes mellitus with foot ulcer (principal); L97.512 Non-pressure chronic ulcer of other part of right foot with fat layer exposed
CPT/HCPCS: 36415; 80053; 83036; 85025; 85652; 86140